=== PATIENT | female | born 1990 | race Caucasian/White ===

== ENCOUNTER 2016-06-16 22:05 | Emergency (ER) | payer MEDICAID, OTHER ==
[~2016-06-16] VITALS: Ht 154.9 cm; Wt 56.0 kg
[2016-06-16 22:12] VITALS: Ht 154.9 cm; Wt 56.0 kg
--- NOTE | 2016-06-17 00:12 | RADRPT ---
PROCEDURE: CT BRAIN WITHOUT CONTRAST CLINICAL INDICATION: 25-year-old female with headaches. TECHNIQUE: The study was performed utilizing a [employer] VCT 64-slice CT scanner. Direct axia l sections were obtained from the foramen magnum to the vertex without the use of intravenous contra st material. Sagittal and coronal reformations were obtained. One or more the following dose reduct ion techniques were utilized: automated exposure control, adjustment of the mA and/or kV according t o patient's size or use of iterative reconstruction technique. The images were viewed on a PACS [employer]. CTD/vol = 45.0 mGy; Total Exam DLP = 720.2 mGy-cm. COMPARISON: None. FINDINGS: The ventricles have a normal size, shape and position. There is no evidence for mass effect or midl ine shift. There are no intracranial areas of abnormal attenuation. There is no evidence for acute intra or extra-axial blood. The bony calvarium is intact. The visualized paranasal sinuses and mast oid air cells are without abnormal soft tissue. IMPRESSION: Unremarkable noncontrast CT scan of the brain. .Robert Weems MD, MD Date Time Electronically viewed and signed by .Robert Weems MD, on 06/17/2016 00:11 .M/
--- NOTE | 2016-06-17 00:14 | ERD ---
ER Documentation Chief Complaint Date/Time DATE: 06/17/16 TIME: 00:13 Chief Complaint chest pain/headache x 3 weeks, dianosed with anxiety at [facility] HPI 25-year-old female presents here in emergency department for complaints of chest pain on and off for 3 weeks, headache started 3 weeks ago on and off, today, chest pain is resolved but is continuously having a headache, patient was seen at [facility] 2 days ago, had a full workup done, was told to possibly just have an anxiety. Patient denies any chest pain at this time. Patient does complain of headache throbbing pains especially scale, not better or worse with anything. Patient states that headache chest pain is accompanied with sweaty palms of the hands and numbness and tingling at times. Patient denies any head injury. Patient denies any fever or chills. Patient denies any cough. Patient denies any dyspnea on exertion or dyspnea on lying down. Patient denies any dizziness. ROS All systems reviewed and are negative except as per history of present illness. Medications Home Meds Reported Medications [none] Unknown Strength No Conflict Check 06/17/16 Allergies Allergies: Coded Allergies: No Known Drug Allergies (Verified Allergy, Unknown, 06/16/16) PMhx/Soc Medical and Surgical Hx: pt denies Medical Hx, pt denies Surgical Hx History of Surgery: No Anesthesia Reaction: No Hx Neurological Disorder: No Hx Respiratory Disorders: No Hx Cardiac Disorders: No Hx Psychiatric Problems: No Hx Alcohol Use: No Hx Substance Use: No Hx Tobacco Use: No Smoking Status: Never smoker FmHx Family History: No coronary disease, No diabetes, No other Physical Exam Vitals Vital Signs Date Time Temp Pulse Resp B/P Pulse Ox O2 Delivery O2 Flow Rate FiO2 06/16/16 22:12 99.0 71 20 124/69 100 Physical Exam GENERAL: The patient is well developed and appropriate for usual state of health, in no apparent distress. CHEST: Clear to auscultation bilaterally. There are no rales, wheezes or rhonchi. HEART: Regular rate and rhythm. No murmurs, clicks, rubs or gallops. No S3 or S4. ABDOMEN: Soft, nontender and nondistended. Good bowel sounds. No rebound or guarding. No gross peritonitis. No gross organomegaly or masses. No Solorzano sign or McBurney point tenderness. BACK: No midline or flank tenderness. EXTREMITIES: Equal pulses bilaterally. There is no peripheral clubbing, cyanosis or edema. No focal swelling or erythema. Full range of motion. Grossly neurovascularly intact. NEURO: Alert and oriented. Cranial nerves 2-12 intact. Motor strength in all 4 extremities with 5/5 strength. Sensation grossly intact. Normal speech and gait. SKIN: There is no apparent rash or petechia. The skin is warm and dry. HEMATOLOGIC AND LYMPHATIC: There is no evidence of excessive bruising or lymphedema. No gross cervical, axillary, or inguinal lymphadenopathy. Results 24 hrs EKG was done, read by me and is normal sinus rhythm at a rate of 76, normal axis , there is no ST changes or changes in the EKG that indicates any cardiac emergencies at this time. Patient's EKG was also reviewed by Dr. Posada. Impression: no acute findings on EKG PROCEDURE: CT BRAIN WITHOUT CONTRAST CLINICAL INDICATION: 25-year-old female with headaches. TECHNIQUE: The study was performed utilizing a [employer] VCT 64-slice CT scanner. Direct axial sections were obtained from the foramen magnum to the vertex without the use of intravenous contrast material. Sagittal and coronal reformations were obtained. One or more the following dose reduction techniques were utilized: automated exposure control, adjustment of the mA and/or kV according to patient's size or use of iterative reconstruction technique. The images were viewed on a PACS workstation. CTD/vol = 45.0 mGy; Total Exam DLP = 720.2 mGy-cm. COMPARISON: None. FINDINGS: The ventricles have a normal size, shape and position. There is no evidence for mass effect or midline shift. There are no intracranial areas of abnormal attenuation. There is no evidence for acute intra or extra-axial blood. The bony calvarium is intact. The visualized paranasal sinuses and mastoid air cells are without abnormal soft tissue. IMPRESSION: Unremarkable noncontrast CT scan of the brain. .Robert Weems MD, Date Time Electronically viewed and signed by .Robert Weems MD, on 06/17/2016 00:11 .M/ CC: MAHOGANY HAJI [employer] PROCEDURE: CHEST - 1 VIEW CLINICAL INDICATION: 25-year-old female with chest pain. TECHNIQUE: A single frontal AP portable view of the chest was performed. The images were reviewed on a PACS workstation. COMPARISON: None. FINDINGS: The cardiomediastinal silhouette has a normal appearance. There is no evidence for an infiltrate. The pulmonary vascularity is within normal limits. There is no evidence for pneumothorax or pneumomediastinum. The osseous structures are intact. IMPRESSION: No evidence for active cardiopulmonary disease. .Robert Weems MD, MD Date Time Electronically viewed and signed by .Robert Weems MD, on 06/17/2016 00:12 .M/ CC: MAHOGANY [employer]JI [employer] Procedures/[facility] Medical Decision Making: Patient's symptoms of on and off chest pain nonspecific at this time, possibly anxiety related. At this time, patient does not have any chest pain. Further evaluation by a hatchery worker specialist may be necessary for possible Holter monitoring. There is low suspicion for cardiopulmonary emergencies at this time. Patient has low risk factors. EKG is normal, there is no changes in the EKG that indicates cardiac emergencies. Chest X-ray does not show cardiopulmonary emergencies at this time. There is low suspicion for aortic aneurysm, myocardial infarction, pneumothorax, pleural effusion, pulmonary embolism, or any other cardiopulmonary emergencies at this time. Patient's headache nonspecific at this time, can be consistent with her anxiety symptoms, can be also from tension headache. There is low suspicion for neurological emergencies at this time since patients neurologic exam is normal. Patient did not have any altered level consciousness, vomiting, changes in balance or memory after incident. Patients CT scan of the head does not show any neurological emergencies at this time. Patient was given for tramadol for severe pain, continue her Ativan, follow-up with primary care doctor in 1-2 days for reevaluation of symptoms. Patient was advised to return to emergency department for any worsening symptoms. Possible psychiatric evaluation. Dispostion: Home. Stable Departure Diagnosis: Primary Impression: Atypical chest pain Additional Impressions: Head ache Headache type: unspecified Headache chronicity pattern: acute headache Intractability: not intractable Qualified Code: R51 - Acute nonintractable headache, unspecified headache type Anxiety Condition: Stable Patient Instructions: Anxiety Reaction, Chest Pain, Uncertain Cause, Self-Care for Headaches Additional Instructions: Patient was given for tramadol for severe pain, continue her Ativan, follow-up with primary care doctor in 1-2 days for reevaluation of symptoms. Patient was advised to return to emergency department for any worsening symptoms. Possible psychiatric evaluation. MAHOGANY HAJI NP June 17, 2016 00:14
[2016-06-17] MEDS ORDERED: TRAM50TA2 PO (00:18)
[2016-06-17 00:55] VITALS: BP 118/73; PULSE 71; RESP 18; TEMP 98.7
== END 2016-06-17 00:55 | disposition home or self-care (01) ==
LOC: FTE 22:05
DX: R07.89 Other chest pain (principal); R51 Headache; F41.9 Anxiety disorder, unspecified
CPT/HCPCS: 70450; 71010; 93005